=== PATIENT | female | born 1995 | race Caucasian/White ===

== ENCOUNTER 2022-05-04 01:26 | Inpatient (IN) | payer MEDICAID, OTHER ==
[~2022-05-04] VITALS: Ht 170.2 cm; Wt 109.3 kg
[2022-05-04] MEDS ORDERED: METH-659 PO (02:14)
[2022-05-04] MEDS ORDERED: ESCI20TA87 PO (02:14)
[2022-05-04] MEDS ORDERED: GABA-1181 PO (02:14)
[2022-05-04 02:23] LABS: COVID AG,FIA SOURCE NASOPHARYNGEAL
[2022-05-04 02:35] LABS: BASOPHILS % (AUTO) 0.8 % (0.0-2.0); EOSINOPHILS % (AUTO) 3.8 % (1.0-6.0); HEMATOCRIT 39.5 % (36-46); HEMOGLOBIN 13.4 g/dL (12.0-16.0); LYMPHOCYTES # (AUTO) 3.5 K/uL (1.0-4.8); LYMPHOCYTES % (AUTO) 44.6 % (22.0-44.0); MEAN CORPUSCULAR HEMOGLOBIN 29.4 pg (26.0-34.0); MEAN CORPUSCULAR HGB CONC 33.9 G/dL (31.0-37.0); MEAN CORPUSCULAR VOLUME 87 fL (80-100); MONOCYTES # (AUTO) 0.8 K/uL (0.1-1.0); MONOCYTES % (AUTO) 9.6 % (2.0-9.0); NEUTROPHILS # (AUTO) 3.3 K/uL (1.8-7.7); NEUTROPHILS % (AUTO) 41.2 % (40.0-70.0); PLATELET COUNT (AUTO) 364 K/uL (150-450); RED BLOOD CELL COUNT(AUTO) 4.56 MIL/uL (4.00-5.20); RED CELL DISTRIBUTION WIDTH 14.3 % (11.5-14.5)
[2022-05-04 02:46] LABS: ANION GAP 14 mmol/L (8-16); CALCIUM, TOTAL 8.3 mg/dL (8.8-10.5); CARBON DIOXIDE 24 mmol/L (22-29); CHLORIDE 103 mmol/L (98-107); CREATININE 0.55 mg/dL (0.60-1.30); GLUCOSE,RANDOM 125 mg/dL (70-110); POTASSIUM 3.4 mmol/L (3.5-5.1); SODIUM SERUM 141 mmol/L (136-145); UREA NITROGEN, BLOOD 11 mg/dL (7-18)
[2022-05-04 02:57] LABS: ALANINE AMINOTRANSFERASE 26 U/L (12-78); ALBUMIN 3.7 g/dL (3.4-5.0); ALKALINE PHOSPHATASE 83 U/L (46-116); ASPARTATE AMINOTRANSFERASE 18 U/L (15-37); BILIRUBIN,TOTAL 0.3 mg/dL (0.1-1.0); HCG,QUANTITATIVE < 1 mIU/mL (0-6); TOTAL PROTEIN, SERUM 7.3 g/dL (6.4-8.2)
[2022-05-04] MEDS ORDERED: HALOPERIDOL 5 MG TABLET PO PRN (03:00)
[2022-05-04] MEDS ORDERED: ZOLPIDEM TARTRATE 10 MG TABLET PO PRN (03:00)
[2022-05-04] MEDS: LORazepam 2 MG TABLET PO PRN ×4 (03:05→22:11)
[2022-05-04 03:17] LABS: GLOMERULAR FILTR. RATE CALC > 60 mL/min (>60)
[2022-05-04 03:26] LABS: APPEARANCE,URINE CLEAR (CLEAR); BILIRUBIN,URINE NEGATIVE (NEGATIVE); GLUCOSE, URINE (UA) NEGATIVE (NEGATIVE); KETONES,URINE NEGATIVE (NEGATIVE); LEUKOCYTE ESTERASE ,URINE TRACE (NEGATIVE); NITRATE,URINE NEGATIVE (NEGATIVE); OCCULT BLOOD,URINE TRACE (NEGATIVE); PH,URINE 6.5 (5.0-8.0); PROTEIN,URINE TRACE mg/dL (NEGATIVE); SPECIFIC GRAVITIY, URINE 1.025 (1.003-1.030); UROBILINOGEN,URINE <=1.0 mg/dL (<=1.0)
[2022-05-04 03:31] LABS: AMPHET/METH SCREEN,URINE NEGATIVE (NEGATIVE); BARBITURATE SCREEN, URINE NEGATIVE (NEGATIVE); BENZODIAZEPINES SCREEN,URINE NEGATIVE (NEGATIVE); CANNABINOID SCREEN,URINE POSITIVE (NEGATIVE); COCAINE SCREEN,URINE NEGATIVE (NEGATIVE); METHADONE SCREEN, URINE NEGATIVE (NEGATIVE); OPIATE SCREEN,URINE NEGATIVE (NEGATIVE)
[2022-05-04 03:33] LABS: PHENCYCLIDINE SCREEN,URINE NEGATIVE (NEGATIVE)
[2022-05-04 03:37] LABS: BACTERIA,URINE Rare /HPF (None Seen); RBC,URINE 0-2 /HPF (0-2); SQUAMOUS EPITHELIAL CELL,UR Rare /LPF (None Seen); WBC,URINE 0-2 /HPF (0-5)
[2022-05-04] MEDS ORDERED: MAG HYDROX/AL HYDROX/SIMETH ES 30 ML SUSPENSION UDCUP PO ONE (06:45)
[2022-05-04] MEDS ORDERED: BACITRACIN 28 GM OINTMENT TP PRN (10:30)
[2022-05-04] MEDS ORDERED: MAGNESIUM HYDROXIDE SUSPENSION 30 ML UDCUP PO PRN (10:30)
[2022-05-04] MEDS ORDERED: MAG HYDROX/AL HYDROX/SIMETH ES 30 ML SUSPENSION UDCUP PO PRN (10:30)
[2022-05-04] MEDS ORDERED: LOPERAMIDE HCL 2 MG CAPSULE PO PRN (10:30)
[2022-05-04] MEDS ORDERED: DOCUSATE SODIUM 100 MG CAPSULE PO PRN (10:30)
[2022-05-04] MEDS ORDERED: OMEPRAZOLE 20 MG CAPSULE PO PRN (10:30)
[2022-05-04] MEDS ORDERED: ALBUTEROL SULFATE HFA 90 MCG/PUFF 8 GM INHALER IH PRN (10:30)
[2022-05-04] MEDS ORDERED: CloNIDine HCL 0.1 MG TABLET PO PRN (10:30)
[2022-05-04] MEDS ORDERED: PETROLATUM,WHITE 28 GM JELLY TP PRN (10:30)
[2022-05-04] MEDS ORDERED: ACETAMINOPHEN 325 MG TABLET PO PRN (10:30)
[2022-05-04] MEDS ORDERED: BENZOCAINE/MENTHOL LOZENGE PO PRN (10:30)
[2022-05-04] MEDS: ONDANSETRON HCL 4 MG TABLET PO PRN ×3 (10:33→22:11)
[2022-05-04 11:13] VITALS: BP 144/73
[2022-05-04] MEDS: IBUPROFEN 600 MG TABLET PO PRN ×2 (12:18→20:14)
[2022-05-04] MEDS ORDERED: METHOCARBAMOL 500 MG TABLET PO PRN (12:30)
[2022-05-04] MEDS: CELECOXIB 200 MG CAPSULE PO SCH (17:00)
[2022-05-04 20:27] VITALS: BP 120/85
[2022-05-05 08:32] VITALS: BP 108/61
[2022-05-05] MEDS: LORazepam 2 MG TABLET PO PRN (10:40)
[2022-05-05] MEDS: CELECOXIB 200 MG CAPSULE PO SCH (12:27)
[2022-05-05] MEDS ORDERED: CELECOXIB 100 MG CAPSULE PO SCH (17:00)
[2022-05-05] MEDS ORDERED: GABAPENTIN 300 MG CAPSULE PO SCH (17:00)
[2022-05-05] MEDS ORDERED: METHOCARBAMOL 500 MG TABLET PO SCH (17:00)
== END 2022-05-05 16:00 | disposition home or self-care (01) | DRG 751 ==
LOC: EMS 01:31 → B2S 05:02
PROVIDERS: ADMIT Psychiatry & Neurology Psychiatry; ATTEND Psychiatry & Neurology Psychiatry
DX: F33.2 Major depressive disorder, recurrent severe without psychotic features (principal); F22 Delusional disorders; Z20.822 Contact with and (suspected) exposure to COVID-19; G47.00 Insomnia, unspecified; F19.10 Other psychoactive substance abuse, uncomplicated; K59.00 Constipation, unspecified; Z72.0 Tobacco use; Z71.6 Tobacco abuse counseling
CPT/HCPCS: 80053; 81001; 84702; 85025; 99285; G0480; Q0162

== ENCOUNTER 2022-06-13 09:50 | Emergency (ER) | payer MEDICAID, OTHER | END 2022-06-13 10:51 | disposition left against medical advice (07) | LOC: EMS 09:50 | DX: R51.9 Headache, unspecified (principal); F12.90 Cannabis use, unspecified, uncomplicated; F41.9 Anxiety disorder, unspecified; F32.A Depression, unspecified; Z98.890 Other specified postprocedural states | CPT/HCPCS: 99283; Z7502 ==